=== PATIENT | female | born 1995 | race American Indian/Alaskan Native ===

== ENCOUNTER 2017-02-04 13:16 | Emergency (ER) | payer MEDICAID ==
[2017-02-04 13:31] VITALS: BP 110/64
[2017-02-04 14:48] LABS: Bacteria,Urine 1+ /HPF (Negative); Bilirubin,Urine NEG (Negative); Blood,Urine SM (Negative); Ketones,Urine NEG (Negative); Leukocyte Esterase,Urine NEG (Negative); Mucus,Urine FEW /HPF; Nitrite,Urine NEG (Negative); Protein,Urine <15 mg/dL mg/dL (Negative)
--- NOTE | 2017-02-04 15:11 | Emergency Department Report ---
ED Dysuria HPI - HPI Chief Complaint: Urogenital-Female Stated Complaint: CONCERN FOR STD; WANTS FEMALE CHECK UP Time Seen by Provider: 02/04/17 14:08 Duration: 2 Days Severity: Mild Symptoms: Dysuria: Yes, Frequency: No, Suprapubic Pain: No, Flank Pain: No, Fever: No, Hematuria: No, Abdominal Pain: No, Previous UTI's: No Other History: NO SEX SINCE FEBRUARY. LMP ENDED YEST; STILL SOME SPOTTING ED Review of Systems ROS: Stated complaint: BREAST PAINS/CHECK UP Other details as noted in HPI Comment: All other systems reviewed and negative Genitourinary: dysuria, other (SCRATCHED HER VAGINA) ED Past Medical Hx - Past Medical History Previous Medical History?: No - Surgical History Past Surgical History?: No - Social History Smoking Status: Never Smoker Substance Use Type: None Dysuria Exam - Exam General: Vital signs noted. No distress. Alert and acting appropriately. Exam: Yes Moist Mucous Membranes, No CVA Tenderness, No Abdominal Tenderness, No Rigidity or Guarding Exam: VSS. NAD. NO FEVER. NO ABD PAIN. LMP ENDED YEST. NO CVA TENDERNESS. NO VAG DC. ABD EXAM WNL. AMUBLATORY. PELVIC EXAM WNL. NO ADENEX. TENDERNESS. NO CERVICAL TENDERNESS Labs: Lab Results 02/04/17 Range/Units 14:15 Urine Color Yellow (Yellow) Urine Turbidity Clear (Clear) Urine pH 5.0 (5.0-7.0) Ur Specific Winn 1.026 (1.003-1.030) Urine Protein <15 mg/dl (Negative) mg/dL Urine Glucose (UA) Neg (Negative) mg/dL Urine Ketones Neg (Negative) mg/dL Urine Blood Sm (Negative) Urine Nitrite Neg (Negative) Ur Reducing Substances Not Reportable Urine Bilirubin Neg (Negative) Urine Ictotest Not Reportable Urine Urobilinogen 2.0 (<2.0) mg/dL Ur Leukocyte Esterase Neg (Negative) Urine WBC (Auto) 1.0 (0.0-6.0) /HPF Urine RBC (Auto) 2.0 (0.0-6.0) /HPF U Epithel Cells (Auto) 3.0 (0-13.0) /HPF Urine Bacteria (Auto) 1+ (Negative) /HPF Urine Mucus Few /HPF Urine HCG, Qual Negative (Negative) ED Course Vital Signs 02/04/17 13:27 Temperature 98.8 F Pulse Rate 73 Respiratory 20 Rate Blood Pressure 110/64 O2 Sat by Pulse 100 Oximetry - Reevaluation(s) Reevaluation #1: 02/04/17 16:25 PT TO ER W CONCERN FOR STD IT HAS BEEN MONTHS SINCE SEX SHE IS VERY ANXIOUS ABOUT IT ALMOST A HOUR SPENT WITH HER ON EXAM AND INTERVIEW LABS NOTED REASSURED DC HOME W FU TO OBGYN ED Medical Decision Making - Medical Decision Making SEE NOTE LMP ENDED YEST STILL SPOTTING - Differential Diagnosis RO UTI Critical care attestation.: If time is entered above; I have spent that time in minutes in the direct care of this critically ill patient, excluding procedure time. ED Disposition Clinical Impression: Concern about STD in female without diagnosis Disposition: DC-01 TO HOME OR SELFCARE Is pt being admited?: No Does the pt Need Aspirin: No Condition: Stable Referrals: PRIMARY CAREMD [Primary Care Provider] - 3-5 Days KVNG NOVA MD [Staff Physician] - 3-5 Days Time of Disposition: 15:11
== END 2017-02-04 16:35 | disposition home or self-care (01) ==
LOC: ED 13:16
DX: Z11.3 Encounter for screening for infections with a predominantly sexual mode of transmission (principal)
CPT/HCPCS: 81001; 81025; 87210; 87591; 99284